=== PATIENT | female | born 2000 | race Caucasian/White ===

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

== ENCOUNTER → 2021-09-08 10:19 | Outpatient (CLI) | payer BC, SELFPAY | PROVIDERS: Visit Provider Nurse Practitioner Family | DX: Z20.822 Contact with and (suspected) exposure to COVID-19 (principal); R06.02 Shortness of breath; R50.9 Fever, unspecified | CPT/HCPCS: C9803; U0003; U0005 ==

== ENCOUNTER → 2022-08-14 06:17 | Outpatient (CLI) | payer BC, SELFPAY | PROVIDERS: Visit Provider Nurse Practitioner Family | DX: B35.1 Tinea unguium (principal) | CPT/HCPCS: 87102; 87206; 87220 ==

== ENCOUNTER → 2022-11-06 10:34 | Outpatient (CLI) | payer BC, SELFPAY ==
[2022-11-07 08:09] LABS: HSV 1 IgG, Type Spec <0.91 index (0.00-0.90); HSV 2 IgG, Type Spec <0.91 index (0.00-0.90)
[2022-11-07 10:31] LABS: HIV Screen 4th Generation wRfx Non Reactive (Non Reactive)
[2022-11-09 23:00] LABS: Hep A Ab, IgM NEGATIVE; Hepatitis B Core Antibody IgM NEGATIVE; Hepatitis B Surface Antigen NEGATIVE; Hepatitis C Antibody NON REACTIVE; Rapid Plasma Reagin Ab Titer NON REACTIVE
== END ==
PROVIDERS: PCP Emergency Medicine; Visit Provider Nurse Practitioner Obstetrics & Gynecology
DX: Z72.51 High risk heterosexual behavior (principal); Z11.4 Encounter for screening for human immunodeficiency virus [HIV]
CPT/HCPCS: 36415; 80074; 86593; 86695; 86703; 86790; G0432

== ENCOUNTER → 2023-07-02 13:43 | Outpatient (CLI) | payer BC, SELFPAY ==
--- NOTE | 2023-07-02 13:46 | XR_ITS ---
FINAL REPORT CLINICAL HISTORY: crepitus x 5 years COMPARISON: None FINDINGS: RIGHT KNEE: 4 views of the right knee obtained. There is no acute fracture or dislocation. The joint spaces are intact.. There is no soft tissue abnormality. IMPRESSION: No acute fracture Reviewed, Interpreted and Dictated by Linus Acosta III, MD Transcribed by Suyapa Cherry Authenticated and [facility]
--- NOTE | 2023-07-02 13:46 | XR_ITS ---
FINAL REPORT CLINICAL HISTORY: crepitus x 5 years left knee hurts more than right COMPARISON: None FINDINGS: LEFT KNEE: 4 views of the left knee obtained. There is no acute fracture or dislocation. The joint spaces are intact.. There is no soft tissue abnormality. IMPRESSION: No acute fracture Reviewed, Interpreted and Dictated by Linus Acosta III, MD Transcribed by Suyapa Cherry Authenticated and [facility]
== END ==
LOC: RAD 13:44
PROVIDERS: PCP Internal Medicine; Visit Provider Internal Medicine
DX: M23.8X1 Other internal derangements of right knee (principal); M23.8X2 Other internal derangements of left knee
CPT/HCPCS: 73564